=== PATIENT | male | born 1935 | race Caucasian/White ===

== ENCOUNTER → 2016-12-11 | Outpatient (CLI) | payer OTHER | LOC: LAB 09:05 | PROVIDERS: ATTEND Urology | DX: R97.20 Elevated prostate specific antigen [PSA] (principal) | CPT/HCPCS: 36415; 84153 ==

== ENCOUNTER 2017-03-26 00:06 | Emergency (ER) | payer OTHER ==
[2017-03-26] MEDS ORDERED: NORMAL SALINE 1000 ML IV ONE (00:30)
[2017-03-26] MEDS ORDERED: Sodium Chloride 0.9% 1,000 ML PRIMARY IV ONE ×2 (00:32→01:38)
[2017-03-26] MEDS ORDERED: Famotidine Inj 20 MG in Normal Saline Flush 10 ML IVP ONE (00:32)
[2017-03-26] MEDS ORDERED: NORMAL SALINE 10 ML SYRINGE FLUSH IVP PRN (00:32)
[2017-03-26] MEDS: MORPHINE SULFATE 2 MG/1 ML IVP ONE ×2 (00:35→01:55)
--- NOTE | 2017-03-26 00:35 | EKG ---
[address] [address] Measurements Intervals Cecil Rate: 75 P: 47 OR: 179 QRS: 8 QRSD: 98 T: 63 QT: 376 QTc: 406 Interpretive Statements SINUS RHYTHM Compared to ECG 11/22/2014 11:54:43 No significant changes Electronically Signed On 03-26-17 08:18:38 MDT by Samy Cohen [id number]
[2017-03-26 00:42] LABS: BASOPHILS # (AUTO) 0.05 10*3/UL; BASOPHILS % (AUTO) 0.6 % (0-1); EOSINOPHILS # (AUTO) 0.18 10*3/UL; EOSINOPHILS % (AUTO) 2.3 % (0-8); HEMATOCRIT 33.3 % (42.0-52.0); HEMOGLOBIN 11.1 g/dL (14.0-18.0); LYMPHOCYTES # (AUTO) 1.66 10*3/uL; MEAN CORPUSCULAR HEMOGLOBIN 30.1 PG (27-31); MEAN CORPUSCULAR HGB CONC 33.3 g/dL (33-37); MEAN CORPUSCULAR VOLUME 90.2 FL (80-90); MEAN PLATELET VOLUME 8.7 FL (7.4-12.2); MONOCYTES # (AUTO) 1.01 10*3/UL (0.3-0.8); MONOCYTES % (AUTO) 12.7 % (5-15); NEUTROPHILS # (AUTO) 5.03 10*3/UL; NEUTROPHILS % (AUTO) 63.2 % (50-80); RED BLOOD COUNT 3.69 10^6/uL (4.70-6.10)
[2017-03-26 00:47] LABS: PLATELET MORPHOLOGY COMMENT NORMAL MORPHOLOGY (NORM); RBC MORPHOLOGY COMMENT NORMAL MORPHOLOGY (NORM); WBC MORPHOLOGY COMMENT NORMAL MORPHOLOGY (NORM)
[2017-03-26 00:48] LABS: BUN/CREATININE RATIO 16.36 (6-20); CALCIUM 9.3 mg/dL (8.7-10.7); SERUM ALBUMIN 3.9 g/dL (3.5-4.8)
[2017-03-26] MEDS ORDERED: MORPHINE SULFATE 4 MG/1 ML IVP ONE (01:40)
[2017-03-26 02:37] VITALS: RESP 18; TEMP 96.9
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
== END 2017-03-26 03:37 | disposition home or self-care (01) ==
LOC: ER 00:06
DX: K80.50 Calculus of bile duct without cholangitis or cholecystitis without obstruction (principal); K80.20 Calculus of gallbladder without cholecystitis without obstruction; R10.84 Generalized abdominal pain; R10.11 Right upper quadrant pain; I25.810 Atherosclerosis of coronary artery bypass graft(s) without angina pectoris
CPT/HCPCS: 74177; 80053; 82150; 83690; 84484; 85025; 93005; 93010; 96374; 96375; 96376; 99283; J2270; J7030

== ENCOUNTER → 2017-03-28 | Outpatient (CLI) | payer OTHER ==
--- NOTE | 2017-03-28 10:51 | DI ---
US ABDOMEN LIMITED,03/28/2017 8:32 AM: Clinical History: Abdominal pain. Previous Exam: CT abdomen pelvis performed March 26, 2017 Findings: Multiple grayscale and color Doppler sonographic images are obtained through the pelvis. The pancreas is not well seen. The liver is grossly normal. The gallbladder contains multiple layering stones which demonstrate posterior shadowing. The common b ile duct measures 5 mm. A negative sonographic Kim's sign was obtained. There is some thickness of the gallbladder wall which measures 4 mm. The right kidney measures 10.8 cm in length without hydronephrosis nor nephrolithiasis. The aorta is within normal limits. Impression: Thickened gallbladder wall with multiple layering stones but in the absence of a Kim's sign. This could represent some chronic cholecystitis.
== END ==
LOC: US 08:25
PROVIDERS: ATTEND Emergency Medicine
DX: R10.84 Generalized abdominal pain (principal)
CPT/HCPCS: 76705

== ENCOUNTER → 2017-04-04 | Outpatient (CLI) | payer OTHER | LOC: MMPC 11:11 | PROVIDERS: ATTEND Surgery | DX: K80.10 Calculus of gallbladder with chronic cholecystitis without obstruction (principal); D64.9 Anemia, unspecified | CPT/HCPCS: 99202; G0463 ==

== ENCOUNTER 2017-04-10 10:14 | Day surgery (SDC) | payer OTHER ==
[~2017-04-10 10:14] MED LIST: ATROPINE SULFATE 0.4 MG/1 ML VIAL IVP PRN; BUPIVACAINE 0.25% W/ EPI - 10 ML VIAL ONE; HYDROmorphone 2 MG/1 ML IVP PRN; Iothalamate Meglumine 30 ML VIAL IV ONE; LIDOCAINE MPF 2% - 5 ML (20 MG/1 ML) ONE; LIDOCAINE W/ SODIUM BICARB 0.5 ML SYR ONE; Lactated Ringers 1,000 ML PRIMARY IV ONE; Lactated Ringers 1,000 ML PRIMARY IV SCH; MIDAZOLAM 5 MG/1 ML ONE; NORMAL SALINE 10 ML SYRINGE FLUSH IVP PRN; ONDANSETRON 4 MG/2 ML VIAL IVP PRN; Ondansetron ODT Tab 8 MG TAB PO PRN; ROCURONIUM 10 MG/1 ML - 5 ML VIAL IVP ONE; Sodium Chloride 0.9% vial 10 ML ONE; Sodium Chloride 0.9% vial 50 ML ONE; ceFAZolin Inj 2gm (Premix) 50 ML IV ONE; fentaNYL Inj 100 MCG/2 ML VIAL IVP PRN; fentaNYL Inj 250 MCG/5 ML VIAL ONE
[2017-04-10] MEDS ORDERED: ePHEDrine Inj 50 MG/ML AMP ONE (11:58)
[2017-04-10] MEDS ORDERED: BUPIVACAINE 0.25% W/ EPI - 10 ML VIAL ONE (12:11)
[2017-04-10] MEDS ORDERED: PHENYLEPHRINE 10,000 MCG/1 ML VIAL ONE (12:20)
[2017-04-10] MEDS ORDERED: Lactated Ringers 1,000 ML PRIMARY IV ONE (12:49)
[2017-04-10] MEDS ORDERED: DEXAMETHASONE PF 10 MG/1 ML VIAL ONE (12:50)
[2017-04-10] MEDS ORDERED: ONDANSETRON 4 MG/2 ML VIAL ONE (13:06)
[2017-04-10] MEDS ORDERED: KETOROLAC 30 MG/1 ML VIAL ONE (13:29)
[2017-04-10 13:57] VITALS: TEMP 96.9
--- NOTE | 2017-04-10 14:06 | GEN.OPNOTE ---
Operative Note Surgery Date: 04/10/17 Preoperative Diagnosis: Chronic cholecystitis with cholelithiasis. Postoperative Diagnosis: Chronic cholecystitis with cholelithiasis. Procedure: Laparoscopic cholecystectomy with intraoperative cholangiogram. Surgeon: Luisito Roberts MD Physician Non Invasive Cardiologist: Other (Ly Kauffman PA-C) Anesthesia Provider: Barbie Ferguson CRNA Anesthesia Type: General Estimated Blood Loss (mL): 10 Fluids: 1500 mL of crystalloid, 2 g of IV Ancef at the start of the procedure, 15 mg of IV Toradol at the end of the procedure. Pathology: Specimen to pathology. Indications: Right upper quadrant pain with chronic bloating and gassiness. Ultrasound shows a gallbladder full of gallstones. Findings: Thickened gallbladder with multiple stones. Omental adhesions. Intraoperative cholangiogram showed a normal sized duct with free flow into the duodenum. There was a normal distal taper. There was a normal branching pattern. There were no filling defects. Complications: none. Operative Summary: The patient was taken to the operating room and placed on the operating table in the supine position. Following induction of general anesthetic the abdomen was prepped and draped in a sterile fashion. A surgical timeout was done. The infraumbilical region was infiltrated with 1/4% Marcaine with epinephrine. An incision was made. The abdominal wall was elevated. A Veres needle was placed without apparent injury and a pneumoperitoneum was induced. The veres needle was withdrawn. A 10 mm trocar was placed without apparent injury and a laparoscope was inserted. Under direct visualization and following Marcaine injection a 10 mm trocar was placed in the epigastrium and 2x5 mm trochars were placed along the costal margin. The gallbladder was grasped and elevated. It was thick walled and full of stones. There were many omental adhesions to the gallbladder. These were taken down both bluntly and with electrocautery. Blunt dissection was used to free the cystic duct. A clip was placed along the neck of the gallbladder. A hole was made in the side wall of the cystic duct. A Ulysses cholangiocatheter was inserted. Intraoperative cholangiogram was taken and was normal as previously dictated. The Ulysses catheter was withdrawn. 2 clips were placed on the distal cystic duct and the duct was divided. The cystic artery was isolated. 2 clips were placed proximally and one distally and the artery was divided. The gallbladder was taken from the hepatic bed using electrocautery. Hemostasis was assured. There was some spillage of small stones which were removed with appropriate irrigation and suctioning. Final check for hemostasis was made. 5 mL of Marcaine was placed in the gallbladder fossa and 5 over the dome of the liver. The gallbladder was placed in an Endopouch. The laparoscope was moved to the epigastric port. The gallbladder was grasped with a large grasper and brought up to the umbilical trocar site. The fascial defect at the umbilicus was slightly increased in size. The gallbladder was brought out through the trocar site without difficulty. The fascial defect at the umbilicus was closed with a running 0 Vicryl. A final check for hemostasis was made. The CO2 was burped from the abdominal cavity. The trochars were removed under direct visualization. The epigastric trocar site was closed with a simple stitch of 0 Vicryl in the fascia. No other trocar sites required fascial closure. The skin wounds were closed with inverted interrupted or running subcuticular 4-0 Monocryl followed by Mastisol Steri-Strips and an appropriate dressing. Patient tolerated the procedure well without complication. Patient was taken to the recovery room in stable condition. All counts were correct.
[2017-04-10] MEDS ORDERED: HYDROcodone-APAP 5 MG -325 MG TABLET PO PRN (14:11)
[2017-04-10] MEDS ORDERED: ONDANSETRON 4 MG/2 ML VIAL IVP PRN (14:11)
[2017-04-10] MEDS ORDERED: MORPHINE SULFATE 2 MG/1 ML IVP PRN (14:11)
[2017-04-10] MEDS ORDERED: NORMAL SALINE 10 ML SYRINGE FLUSH IVP PRN (14:11)
[2017-04-10] MEDS ORDERED: Lactated Ringers 1,000 ML PRIMARY IV SCH (14:15)
[2017-04-10] MEDS ORDERED: HYDROcodone-APAP 5 MG -325 MG TABLET PO ONE ×2 (14:53→15:22)
[2017-04-10 15:30] VITALS: RESP 21
--- NOTE | 2017-04-11 11:16 | DI ---
OPERATIVE CHOLANGIOGRAM, 04/10/2017 11:15 AM : Clinical History: Cholelithiasis. 5 are submitted. Contrast is present on all films with reflux into the duodenum. There is no retained stone in the common hepatic or common bile ducts. The visualized portions of the intrahepatic biliar y tree are normal. Reading: Normal operative cholangiogram.
== END 2017-04-10 15:49 | disposition home or self-care (01) ==
LOC: SDSC 10:14
PROVIDERS: ATTEND Surgery
DX: K80.10 Calculus of gallbladder with chronic cholecystitis without obstruction (principal); D64.9 Anemia, unspecified
CPT/HCPCS: 47563; 74300; A4216; J0690; J1885; J2704; J3010; Q9961; J1100; J2001; J2250; J2370; J2405; J7120

== ENCOUNTER → 2017-04-18 | Outpatient (CLI) | payer OTHER | LOC: MMPC 11:11 | PROVIDERS: ATTEND Surgery | DX: D64.9 Anemia, unspecified (principal); Z90.49 Acquired absence of other specified parts of digestive tract ==

== ENCOUNTER → 2017-05-06 | Outpatient (CLI) | payer OTHER | LOC: MMPC 09:00 | PROVIDERS: ATTEND Family Medicine | DX: E11.9 Type 2 diabetes mellitus without complications (principal); I10 Essential (primary) hypertension | CPT/HCPCS: 99213; G0463 ==

== ENCOUNTER → 2017-06-05 | Outpatient (CLI) | payer OTHER ==
[2017-06-05 14:18] LABS: HEMOGLOBIN 11.6 g/dL (14.0-18.0); MEAN CORPUSCULAR HEMOGLOBIN 29.2 PG (27-31); MEAN CORPUSCULAR HGB CONC 33.1 g/dL (33-37); MEAN CORPUSCULAR VOLUME 88.2 FL (80-90); RED BLOOD COUNT 3.97 10^6/uL (4.70-6.10)
[2017-06-05 14:19] LABS: MEAN PLATELET VOLUME 8.2 FL (7.4-12.2)
[2017-06-05 14:20] LABS: BUN/CREATININE RATIO 11.33 (6-20); CALCIUM 9.1 mg/dL (8.7-10.7); CHOL/HDL RATIO 3.58 RATIO (0-4.0); LDL CHOLESTEROL,CALCULATED 101.2 mg/dL
[2017-06-05 14:21] LABS: HEMOGLOBIN A1C 6.57 % (4.2-6.0)
== END ==
LOC: LAB 13:42
PROVIDERS: ATTEND Family Medicine
DX: E11.9 Type 2 diabetes mellitus without complications (principal); D64.9 Anemia, unspecified; E78.5 Hyperlipidemia, unspecified
CPT/HCPCS: 36415; 80053; 80061; 83036; 85027

== ENCOUNTER → 2017-06-10 | Outpatient (CLI) | payer OTHER | LOC: MMPC 11:11 | PROVIDERS: ATTEND Surgery | DX: D64.9 Anemia, unspecified (principal); K21.9 Gastro-esophageal reflux disease without esophagitis | CPT/HCPCS: 99213; G0463 ==

== ENCOUNTER 2017-06-12 08:25 | Day surgery (SDC) | payer OTHER ==
[~2017-06-12 08:25] MED LIST changes: -ATROPINE SULFATE 0.4 MG/1 ML VIAL IVP PRN; -BUPIVACAINE 0.25% W/ EPI - 10 ML VIAL ONE; -HYDROmorphone 2 MG/1 ML IVP PRN; -Iothalamate Meglumine 30 ML VIAL IV ONE; +LIDOCAINE 2% VISCOUS(20 MG/1 ML) - 15 ML UD CUP PO ONE; +LIDOCAINE HCL/PF 2% (20 MG/ML) - 5 ML SYRINGE ONE; -LIDOCAINE MPF 2% - 5 ML (20 MG/1 ML) ONE; -Lactated Ringers 1,000 ML PRIMARY IV SCH; -NORMAL SALINE 10 ML SYRINGE FLUSH IVP PRN; -ONDANSETRON 4 MG/2 ML VIAL IVP PRN; -Ondansetron ODT Tab 8 MG TAB PO PRN; -ROCURONIUM 10 MG/1 ML - 5 ML VIAL IVP ONE; -Sodium Chloride 0.9% vial 10 ML ONE; -Sodium Chloride 0.9% vial 50 ML ONE; -ceFAZolin Inj 2gm (Premix) 50 ML IV ONE; -fentaNYL Inj 100 MCG/2 ML VIAL IVP PRN; +fentaNYL Inj 100 MCG/2 ML VIAL ONE; -fentaNYL Inj 250 MCG/5 ML VIAL ONE
[2017-06-12 09:41] VITALS: TEMP 97.4
--- NOTE | 2017-06-12 10:30 | GEN.OPNOTE ---
EGD / Colonoscopy Report Preoperative Diagnosis: Anemia. Chronic GERD. Colon cancer screening. Postoperative Diagnosis: Anemia. Chronic GERD. Colon cancer screening. Colon polyp at the ileocecal valve. Colon polyp at 15 cm. Zenker's diverticulum Procedure: #1 esophagogastroduodenoscopy with biopsy. #2 complete colonoscopy with biopsy and hot snare polypectomy 2. Surgeon: Luisito Roberts MD Anesthesia Provider: Jorge Arizmendi CRNA Anesthesia Type: MAC Indications: See preoperative diagnosis. EGD Findings: Esophagus: [Normal with a Zenker's diverticulum.] GE Junction : [Irregular Z line. Possible Naranjo's change. Moderate hiatal hernia] Fundus : [Normal] Body : [Some dried blood. Friability of the mucosa. Multiple biopsies taken.] Prepyloric : [Mild erythema. Biopsies taken.] Small Intestine : [Normal. ] A lubricated flexible upper endoscope was inserted and passed through the esophagus and stomach into the duodenum. The duodenum and duodenal bulb were unremarkable. The pyloric channel was patent. There is erythema in the antrum. Multiple biopsies were taken. Hemostasis was assured. The scope was retroflexed. There was a moderate hiatal hernia. There is some dried blood on the body mucosa. Biopsies were taken as the area was friable. Hemostasis was assured. Air was aspirated. The scope was withdrawn into the distal esophagus. There is some irregularity at the Z line with some tongues of abnormal mucosa extending into the esophagus. Multiple biopsies were taken. Hemostasis was assured. The scope was withdrawn through the esophagus. There was a Zenker's diverticulum in the proximal esophagus.. It was broad mouthed and fairly small. The scope was withdrawn through the hypopharynx under suction completing that portion of the procedure. Colonoscopy Findings: Prep : [Very good] Cecum : [Normal. ] Ascending : [sessile polyp at the ileocecal valve. Biopsies were taken. Removed with a hot snare in a piecemeal fashion. Cauterized the area as well.] Transverse : [Normal] Sigmoid : [A few scattered diverticuli] Rectum : [Polyp at 15 cm removed with a hot snare.] Digital Rectal Exam : [Markedly enlarged prostate, with a left nodule.] A lubricated flexible colonoscope was inserted and passed to the blind end of the cecum. The cecum itself was normal. There appeared to be a sessile polyp on the ileocecal valve. This was biopsied and removed in a piecemeal fashion with a hot snare. The area was cauterized as well. Hemostasis was assured. Air was aspirated as the scope was withdrawn. The remainder of the ascending colon, hepatic flexure, transverse colon, splenic flexure, descending colon and sigmoid colon were normal with exception of a few scattered sigmoid diverticuli. At 15 cm in the high rectum was a small polyp this was removed with a hot snare. Hemostasis was assured. The remainder of the rectum was unremarkable and the scope was withdrawn completing the procedure. Patient tolerated all aspects of the procedure well without complication. He was taken to outpatient surgery in stable condition. Follow-up will be with my office on an as-needed basis. We will call the biopsy results when available. Because of his large prostate the patient should have a PSA checked and probably follow-up with the urologist for his massively enlarged prostate.
[2017-06-12 11:19] VITALS: RESP 16
== END 2017-06-12 11:02 | disposition home or self-care (01) ==
LOC: SDSC 08:25
PROVIDERS: ATTEND Surgery
DX: D64.9 Anemia, unspecified (principal); Z12.11 Encounter for screening for malignant neoplasm of colon; K21.9 Gastro-esophageal reflux disease without esophagitis; K63.5 Polyp of colon; K22.5 Diverticulum of esophagus, acquired
CPT/HCPCS: 43239; 45385; J2250; J2704; J3010; 88305; 88312; J7120